=== PATIENT | male | born 1950 | race African-American/Black ===

== ENCOUNTER 2018-09-04 17:18 | Inpatient (IN) | payer MEDICAID, MEDICARE ==
[~2018-09-04] VITALS: Ht 154.9 cm; Wt 69.9 kg
[2018-09-04 17:20] VITALS: BP_SYST 78
--- NOTE | 2018-09-04 17:20 | NUR ---
Arrived via ALS ambulance with reported SOB x 1 hour. Patient was desaturating on RA with tachypnea, shallow resp, hypotension enroute. Placed in room 8. Placed on cardiac catheterization technician, blood pressure machine and pulse oximeter. To gown for exam. Side rails up. Report given to Sommer VILLEGAS.
--- NOTE | 2018-09-04 17:22 | NUR ---
Patient brought in ALS [facility] from [facility]. Patient presents with Shortness of breath x 1 hour prior to arrival. Patient appears to be lethargic o2 saturation unable to read at this time. Skin is cold and dry. Patient is Tachycardic and Tachypneic on NRB at 15 Liters. History of bladder cancer. AAO x 3. Patient has Mcintosh catheter in place. Denies any pain at this time. No other complaints/injuries per patient or as noted. Daughter, Eilzabet, at [facility] states patient is DNR/ DNI. Will continue to monitor.
--- NOTE | 2018-09-04 17:28 | NUR ---
ER at bedside examining patient.
[2018-09-04] MEDS ORDERED: IPRATROPIUM BROM 0.5 MG/2.5 ML VIAL.NEB (ATROVENT) INH ONE (17:30)
[2018-09-04] MEDS ORDERED: ALBUTEROL SULFATE 0.083% 2.5 MG/3 ML VIAL.NEB INH ONE (17:30)
--- NOTE | 2018-09-04 17:30 | NUR ---
Patient placed on Bipap. Марина ORTA at bedside.
--- NOTE | 2018-09-04 17:43 | NUR ---
# 18 gauge angiocath placed to Left upper arm. Use of asceptic technique. Opsite placed over site. Blood return noted. Blood for lab drawn from site. Flushed with 10 cc of normal saline. No evidence of infiltration noted. Patient tolerated well.
--- NOTE | 2018-09-04 17:44 | NUR ---
Blood cultures drawn
[2018-09-04] MEDS ORDERED: NACL 0.9% 1,000 ML IV ONE ×2 (17:45→18:15)
--- NOTE | 2018-09-04 17:47 | NUR ---
Rayshawn electrocardiographic technician, at bedside for Chest Xray.
[2018-09-04 17:48] LABS: BASOPHILS # (AUTO) 0.1 K/uL (0.0-0.2); BASOPHILS % (AUTO) 0.7 % (0.0-2.0); HEMATOCRIT 22.1 % (36-54); HEMOGLOBIN 7.1 g/dL (14.0-18.0); LYMPHOCYTES # (AUTO) 1.5 K/uL (1.0-5.5); MEAN CORPUSCULAR HEMOGLOBIN 27 pg (27-31); MEAN CORPUSCULAR HGB CONC 32 % (32-36); MEAN CORPUSCULAR VOLUME 85 fL (79.0-98.0); MONOCYTES # (AUTO) 1.5 K/uL (0.0-1.0); MONOCYTES % (AUTO) 7.8 % (1.7-9.3); NEUTROPHILS % (AUTO) 83.5 % (40.0-70.0); PLATELET COUNT (AUTO) 358 K/uL (130-430); RED CELL DISTRIBUTION WIDTH 18.6 % (9.0-15.0); WHITE BLOOD COUNT (AUTO) 19.2 K/uL (4.8-10.8)
--- NOTE | 2018-09-04 17:49 | NUR ---
Patient's O2 saturation now 100% on Bipap. Blood pressure continues to be at 72/55, HR 108. IV infusing Normal Saline 0.9% Bolus. Daughter Elizabet at bedside.
[2018-09-04 18:04] LABS: CALCIUM 12.3 mg/dL (8.4-11.0); CREATININE 4.96 mg/dL (0.55-1.30)
[2018-09-04 18:10] LABS: POTASSIUM 7.1 mmol/L (3.5-5.1)
[2018-09-04 18:12] LABS: ALBUMIN 2.4 g/dL (3.4-4.8); TOTAL BILIRUBIN 0.4 mg/dL (0.0-1.0)
[2018-09-04] MEDS ORDERED: CALCIUM CHLORIDE 1 GM/10 ML DISP.SYRIN (14 mEq Ca++/SYR) IVP ONE (18:15)
[2018-09-04] MEDS ORDERED: DEXTROSE 50% JECT 50 ML DISP.SYRIN IVP ONE (18:15)
[2018-09-04] MEDS ORDERED: PIPERACILLIN/TAZOBACTAM 2.25 GM in NS 50 ML IV ONE (18:15)
[2018-09-04] MEDS ORDERED: SODIUM BICARBONATE 8.4% JECT 50 MEQ/50 ML SYRINGE IVP ONE (18:15)
[2018-09-04] MEDS ORDERED: SODIUM POLYSTYRENE SULFONATE 15 GM/60 ML UDBTL PO ONE (18:15)
[2018-09-04] MEDS ORDERED: INSULIN REGULAR, HUMAN 10 UNITS/0.1 ML INJ IVP ONE (18:15)
[2018-09-04] MEDS ORDERED: VANCOMYCIN HCL 1,000 MG in NS 250 ML IV ONE (18:15)
--- NOTE | 2018-09-04 18:19 | NUR ---
Alejandra iqbal in ED - 09/04/18 at 1912 by SDEDCJM Patient's Iv line to Right FA infiltrated and left Upper arm infilitrated. IVs removed and pressure applied.
--- NOTE | 2018-09-04 18:20 | NUR ---
End of life care decisions discussed with Daughter, Elizabet, at beside by Dr. Fischer. Opportunity for questions and concerns addressed. Patient's code status is DNR/ DNI paperwork completed and placed in chart.
--- NOTE | 2018-09-04 18:24 | NUR ---
Dr. Fischer documented Septic Shock. Blood Cultures obtained. Lactic ordered. Antibiotics: Zosyn and Vancomycin ordered by Dr. Fischer. Patient started on Fluid Resuscitation.
[2018-09-04] MEDS ORDERED: PIPERACILLIN/TAZOBACTAM 2.25 GM VIAL IV ONE ×2 (18:40→22:08)
[2018-09-04] MEDS ORDERED: VANCOMYCIN HCL 1000 MG/VIAL IV ONE (18:42)
--- NOTE | 2018-09-04 18:42 | NUR ---
Patient's Iv line to Right FA infiltrated and left Upper arm infilitrated. IVs removed and pressure applied.
[2018-09-04] MEDS ORDERED: NOREPINEPHRINE BITARTRATE 4 MG in NS 246 ML IV ONE (18:45)
--- NOTE | 2018-09-04 18:45 | NUR ---
Dr. Fischer at bedside for Central Line placement.
[2018-09-04] MEDS ORDERED: LORazepam 2 MG/ML VIAL (FOR ER USE) ONE ×2 (19:00→19:40)
--- NOTE | 2018-09-04 19:05 | NUR ---
Alejandra iqbal in ED - 09/04/18 at [address] Fischer at bedside for central line placement.
--- NOTE | 2018-09-04 19:18 | NUR ---
Dr. Coulter at bedside.
[2018-09-04] MEDS ORDERED: DILR3 PO (19:35)
[2018-09-04] MEDS ORDERED: MULT-1117 PO (19:35)
[2018-09-04] MEDS ORDERED: ACET325T53 PO (19:35)
[2018-09-04] MEDS ORDERED: SENN8.6T19 PO (19:35)
[2018-09-04] MEDS ORDERED: PRO40 PO (19:35)
[2018-09-04] MEDS ORDERED: BISA-79 PO (19:35)
[2018-09-04] MEDS ORDERED: ONDA4TAB5 PO (19:35)
[2018-09-04] MEDS ORDERED: HYDR-4272 PO (19:35)
[2018-09-04] MEDS ORDERED: MOM PO (19:35)
[2018-09-04] MEDS ORDERED: FLEETMO RC (19:35)
[2018-09-04] MEDS ORDERED: DOCU-144 PO (19:35)
[2018-09-04] MEDS ORDERED: NOREPINEPHRINE 4 MG/4 ML VIAL IV ONE (19:54)
[2018-09-04] MEDS ORDERED: LORazepam 2 MG/ML VIAL IVP ONE (20:00)
[2018-09-04] MEDS ORDERED: LORazepam 2 MG/ML VIAL (FOR ER USE) IM ONE (20:00)
--- NOTE | 2018-09-04 20:02 | NUR ---
Medication reconciliation completed with information provided by Patient's MEdication list from Aaron Cook. Any prior medication reconciliation on file was reviewed and corrected.
--- NOTE | 2018-09-04 20:02 | NUR ---
Levophed drip started at 19:57. BP is 72/44. HR 114. Addendum: 09/04/18 at 2008 by SDEDVS Rate is 2 mcg/min
--- NOTE | 2018-09-04 20:08 | NUR ---
Pt's bp is 80/48; HR: 114. Levophed was titrated up to 4mcg/min. Time 2007
--- NOTE | 2018-09-04 20:09 | NUR ---
Patient will be admitted to care of Dr. Coulter. Admitted to ICU unit. Will go to room ICU 3. Belongings list completed. Summary report printed. Report will be given at bedside.
[2018-09-04] MEDS ORDERED: ACETAMINOPHEN 650 MG SUPP.RECT RC PRN (20:15)
[2018-09-04] MEDS ORDERED: ONDANSETRON HCL 4 MG/2 ML VIAL IVP PRN (20:15)
--- NOTE | 2018-09-04 20:19 | NUR ---
Pt's bp is 91/49. Hr. 111 at 2019.
[2018-09-04 20:32] VITALS: BP_SYST 93
--- NOTE | 2018-09-04 20:32 | NUR ---
Transfer to ICU via ACLS protocol. Licensed nurse present. IV present no signs or symptoms of infiltration.
--- NOTE | 2018-09-04 20:32 | NUR ---
ICU ADMIT Pt is obtunded. O2 via BIPAP, tolerating current settings. SR/ST noted on monitor. Right IJ, triple lumen noted with IVF and Levophed infusing. Belongings brought with patient. Skin cool and dry. Sepsis protocol in place. Safety precautions in place. Will continue to monitor.
[2018-09-04 20:43] VITALS: BP_SYST 93
[2018-09-04 21:00] VITALS: BP_SYST 101; BP_SYST 67
[2018-09-04 21:09] LABS: BASOPHILS % (AUTO) 0.2 % (0.0-2.0); LYMPHOCYTES % (AUTO) 6.8 % (20.5-51.5); MEAN CORPUSCULAR HEMOGLOBIN 28 pg (27-31); MEAN CORPUSCULAR HGB CONC 33 % (32-36); MEAN CORPUSCULAR VOLUME 85 fL (79.0-98.0); MONOCYTES # (AUTO) 1.6 K/uL (0.0-1.0); MONOCYTES % (AUTO) 10.8 % (1.7-9.3); NEUTROPHILS # (AUTO) 12.4 K/uL (1.8-7.7); NEUTROPHILS % (AUTO) 82.2 % (40.0-70.0); PLATELET COUNT (AUTO) 244 K/uL (130-430); RED BLOOD CELL COUNT(AUTO) 2.13 MIL/uL (4.2-6.2); RED CELL DISTRIBUTION WIDTH 18.2 % (9.0-15.0); WHITE BLOOD COUNT (AUTO) 15.1 K/uL (4.8-10.8)
[2018-09-04 21:20] LABS: HEMATOCRIT 18.1 % (36-54)
[2018-09-04 21:24] LABS: CALCIUM 11.3 mg/dL (8.4-11.0); CREATININE 4.68 mg/dL (0.55-1.30); POTASSIUM 5.6 mmol/L (3.5-5.1)
[2018-09-04] MEDS: FAMOTIDINE PF 20 MG/2 ML VIAL IVP SCH (21:28)
[2018-09-04] MEDS: NACL 0.9% 1,000 ML IV SCH (21:28)
--- NOTE | 2018-09-04 21:30 | NUR ---
Pts daughter, Marine at bedside.
--- NOTE | 2018-09-04 21:55 | NUR ---
RENAL CONSULT CALLED, FOR RENAL CONSULT CALLED AND SPOKE WITH TRIXIE.MESSAGE LEFT. PULMONARY CONSULT FOR CALLED AND SPOKE WITH TRIXIE @ EXCHANGE. HEMATOLOGY CONSULT FOR CALLED AND SPOKE WITH TRIXIE @ EXCHANGE.
[2018-09-04 22:00] VITALS: BP_SYST 105
--- NOTE | 2018-09-04 22:44 | NUR ---
BLOOD CONSENT Blood consent given over the phone from pts daughter Marine Gentile, second nurse here for consent.
[2018-09-04 23:00] VITALS: BP_SYST 102
--- NOTE | 2018-09-04 23:56 | NUR ---
BLOOD TRANSFUSION STARTED. 1 OUT OF 2 UNITS TO BE GIVEN.
[2018-09-05] VITALS (24 sets, daily range): BP systolic 93–125
[2018-09-05] MEDS: PIPERACILLIN/TAZO 2.25G/DEX-IS 50 ML IV SCH ×5 (00:12→23:26)
[2018-09-05] MEDS ORDERED: NOREPINEPHRINE 4 MG/4 ML VIAL IV ONE (03:27)
[2018-09-05] MEDS: NACL 0.9% 1,000 ML IV SCH ×4 (04:11→22:27)
[2018-09-05] MEDS: NOREPINEPHRINE BITARTRATE 4 MG in NS 246 ML IV PRN ×3 (04:11→21:32)
[2018-09-05 06:05] LABS: BASOPHILS # (AUTO) 0.1 K/uL (0.0-0.2); BASOPHILS % (AUTO) 0.7 % (0.0-2.0); HEMATOCRIT 29.4 % (36-54); HEMOGLOBIN 9.5 g/dL (14.0-18.0); MEAN CORPUSCULAR HEMOGLOBIN 29 pg (27-31); MEAN CORPUSCULAR HGB CONC 32 % (32-36); MONOCYTES # (AUTO) 1.2 K/uL (0.0-1.0); MONOCYTES % (AUTO) 8.8 % (1.7-9.3); NEUTROPHILS # (AUTO) 11.6 K/uL (1.8-7.7); NEUTROPHILS % (AUTO) 83.5 % (40.0-70.0); PLATELET COUNT (AUTO) 251 K/uL (130-430); RED BLOOD CELL COUNT(AUTO) 3.34 MIL/uL (4.2-6.2); RED CELL DISTRIBUTION WIDTH 17.5 % (9.0-15.0); WHITE BLOOD COUNT (AUTO) 13.9 K/uL (4.8-10.8)
[2018-09-05 06:16] LABS: INR 1.1 (0.80-1.20); PROTHROMBIN TIME 11.2 SECS (9.5-12.5)
[2018-09-05 06:20] LABS: CALCIUM 10.8 mg/dL (8.4-11.0); CREATININE 4.25 mg/dL (0.55-1.30)
[2018-09-05 06:26] LABS: POTASSIUM 5.8 mmol/L (3.5-5.1)
[2018-09-05 07:09] LABS: MEAN CORPUSCULAR VOLUME 88 fL (79.0-98.0)
--- NOTE | 2018-09-05 07:10 | NUR ---
OPENING NOTE: Received SBAR report and plan of care from restaurant shift leader RN
--- NOTE | 2018-09-05 07:23 | NUR ---
ENDORSEMENT Pt care endorsed to dayshift RN at bedside using nursing SBAR.
--- NOTE | 2018-09-05 08:05 | NUR ---
RT NOTES Settings to 14/5 80% per Dr Lema's order. No adverse reactions noted. Will monitor pt.
--- NOTE | 2018-09-05 08:05 | NUR ---
ABG results received, notified Dr Lema of abnormal values by telephone, orders received, entered and carried out.
[2018-09-05] MEDS ORDERED: SODIUM BICARBONATE 8.4% JECT 50 MEQ/50 ML SYRINGE IVP ONE (08:15)
[2018-09-05] MEDS: FAMOTIDINE PF 20 MG/2 ML VIAL IVP SCH ×2 (08:48→20:33)
[2018-09-05] MEDS ORDERED: SODIUM BICARBONATE 8.4% JECT 50 MEQ/50 ML SYRINGE ONE (08:59)
--- NOTE | 2018-09-05 09:10 | NUR ---
RT NOTES FIO2 TO 60% per titration order. No adverse reactions noted. Will monitor pt. Addendum: 09/05/18 at 0915 by Selma Dos Santos RT Amended: Links added.
--- NOTE | 2018-09-05 09:25 | NUR ---
RT NOTES Called to bedside due to low saturation, FIO2 to 70%, readjusted pulse ox, pt's current sat 95%
--- NOTE | 2018-09-05 09:40 | NUR ---
DR LAWRENCE at bedside discussing with patient's daughter, who has POA, about possible placement of NGTube, and replacement of LT Nephrostomy tube which seems to be dislodged. Daughter said she needed to discuss with family before authorizing procedures. Daughter educated on importance of having NGtube placed for administration of medications and possible enteral feeding, and the importance of replacing the nephrostomy tube for renal drainage. She said she would let us know as soon as she can make a decision.
--- NOTE | 2018-09-05 10:06 | NUR ---
Nutrition Update Bernard Scale 13 noted. Pt admitted for acute respiratory failure. Diet: NPO BMI: 20.9 kg/m2 RD to follow per nutrition care standards.
[2018-09-05] MEDS ORDERED: HYDROCORTISONE SOD SUCC 100 MG/2 ML VIAL IVP ONE (10:45)
[2018-09-05 13:06] LABS: HEMOGLOBIN 5.9 g/dL (14.0-18.0)
--- NOTE | 2018-09-05 14:31 | NUR ---
Patients daughter Elizabet is at bedside, daughter has POA. Asked daughter if she had reached a decision about NGtube placement and LT Nephrostomy replacement as discussed with Dr Rodriguez this morning. Daughter said she did not want either tube placed. Daughter stated that she would like time for family to come visit patient and then she has intentions of requesting that we DC Levophed and BiPap support. She states that she wants to "let her dad go now because he is no longer here and has suffered long enough"
--- NOTE | 2018-09-05 15:01 | NUR ---
Draw Press Operator Note Patient referred to Draw Press Operator by nursing for end of life issues. SECURITY PATROL OFFICER met with patient's daughter, Alexei, at bedside. Patient is unresponsive. Alexei stated patient has been in pain for ten years. He has had multiple hospitalizations and recently has been living at [facility]. She stated patient never wanted to be kept alive by machines. She has told her family members that she plans to remove life supporting measures soon, possibly tonight, and that they needed to visit now if they wished to see him. Alexei is at peace with this decision, knowing it is what patient would want. SECURITY PATROL OFFICER noted that Alexei is the decision maker in the POLST dated 08/20/18 which is in the chart. Alexei is working on mortuary arrangements and will let patient's nurse know when she has made a decision. SECURITY PATROL OFFICER offered support and business card. Will remain available upon request. Addendum: 09/06/18 at 1401 by Sam LANDA SS met with Alexei at patients bedside. Pt looks uncomfortable but Alexei stated "he looks better than yesterday". Alexei is still continuing to contact mortuary services for pricing. SS offered to call clergy/roll mechanic services since the patient is a Yazidi and affiliated with a Yazidi faith in [place]. Per Alexei, she has contacted the patients roll mechanic/clergy yesterday and was supposed to visit today; SS provided resources from around the area if she decides to call somebody else; Alexei was grateful and is considering the option. SS provided additional mortuary services, bereavement support group and faith list. SS will remain available for support.
--- NOTE | 2018-09-05 15:02 | NUR ---
Dietitian Recommendations * Consider advance diet or EN support versus PPN support if/when medically appropriate LP, RD Please refer to Nutrition Assessment for details. Addendum: 09/05/18 at [address] Amended: Links added.
--- NOTE | 2018-09-05 15:20 | NUR ---
RT NOTES FIO2 to 60% titration order Addendum: 09/05/18 at 1734 by Selma Dos Santos RT Amended: Links added.
--- NOTE | 2018-09-05 17:25 | NUR ---
RT NOTES FIO2 to 55% per titration order. Addendum: 09/05/18 at 1736 by Selma Dos Santos RT Amended: Links added.
[2018-09-05] MEDS: HYDROCORTISONE SOD SUCC 100 MG/2 ML VIAL IVP SCH (18:12)
[2018-09-05] MEDS: INSULIN REGULAR, HUMAN 100 UNITS/ML, 10 ML VIAL (humuLIN R) SUBCUT PRN ×2 (18:20→23:31)
[2018-09-05] MEDS: LEVOFLOXACIN 250 MG/D5W 50 ML IV SCH (18:54)
--- NOTE | 2018-09-05 19:20 | NUR ---
PM ASSESSMENT Pt in bed w/ eyes closed resting comfortably. No signs of acute distress or discomfort noted. Pt is obtunded. VSS w/ SR seen on the monitor. Pt on Bipap 14/5, BUR 20, and FIO2 55%, tolerating well w/ O2 sats @ 98% and even and unlabored breathing. Pt has a R IJ triple lumen, dressing c/d/i which is infusing NS @ 150 cc/hr and Levophed @ 8 mcg/min. Pt has bilateral nephrostomy tube to right and left side. Bilateral SCD's noted to pt's lower extremities. Bed is locked and in lowest position, call light w/in reach, will cont to monitor.
--- NOTE | 2018-09-05 19:55 | NUR ---
RT titrated pt's FIO2 to 40%, pt tolerated changes well, will cont to monitor.
--- NOTE | 2018-09-05 20:10 | NUR ---
MD Rounds Dr. Coulter in to see pt. New orders received, will carry out orders.
[2018-09-05] MEDS ORDERED: SODIUM POLYSTYRENE SULFONATE 15 GM/60 ML UDBTL RC ONE (20:15)
[2018-09-05] MEDS ORDERED: SODIUM POLYSTYRENE SULFONATE 15 GM/60 ML UDBTL RC SCH (20:30)
--- NOTE | 2018-09-05 22:40 | NUR ---
Pt in bed w/ eyes closed resting comfortably. No signs of acute distress or discomfort noted. Will cont to monitor pt.
[2018-09-06] VITALS (24 sets, daily range): BP systolic 103–137
--- NOTE | 2018-09-06 01:45 | NUR ---
CHG Pt had a bowel movement at this time. CHG bath given. Pt tolerated well, will cont to monitor pt.
[2018-09-06] MEDS: HYDROCORTISONE SOD SUCC 100 MG/2 ML VIAL IVP SCH ×3 (02:48→18:15)
--- NOTE | 2018-09-06 03:40 | NUR ---
RT titrated pt's FIO2 to 30%, pt tolerated changes well, will cont to monitor.
--- NOTE | 2018-09-06 05:10 | NUR ---
RT put pt on 2L O@ via NC, pt tolerated changes well, will cont to monitor.
[2018-09-06] MEDS: NACL 0.9% 1,000 ML IV SCH (05:18)
[2018-09-06] MEDS: PIPERACILLIN/TAZO 2.25G/DEX-IS 50 ML IV SCH ×3 (05:18→17:33)
[2018-09-06 05:24] LABS: BASOPHILS % (AUTO) 0.3 % (0.0-2.0); HEMATOCRIT 23.9 % (36-54); HEMOGLOBIN 7.9 g/dL (14.0-18.0); LYMPHOCYTES # (AUTO) 0.4 K/uL (1.0-5.5); LYMPHOCYTES % (AUTO) 2.8 % (20.5-51.5); MEAN CORPUSCULAR HEMOGLOBIN 29 pg (27-31); MEAN CORPUSCULAR HGB CONC 33 % (32-36); MEAN CORPUSCULAR VOLUME 87 fL (79.0-98.0); MONOCYTES # (AUTO) 1.1 K/uL (0.0-1.0); MONOCYTES % (AUTO) 7.7 % (1.7-9.3); NEUTROPHILS # (AUTO) 12.2 K/uL (1.8-7.7); NEUTROPHILS % (AUTO) 89.2 % (40.0-70.0); PLATELET COUNT (AUTO) 192 K/uL (130-430); RED BLOOD CELL COUNT(AUTO) 2.73 MIL/uL (4.2-6.2); RED CELL DISTRIBUTION WIDTH 17.6 % (9.0-15.0); WHITE BLOOD COUNT (AUTO) 13.7 K/uL (4.8-10.8)
[2018-09-06] MEDS: NOREPINEPHRINE BITARTRATE 4 MG in NS 246 ML IV PRN (05:28)
[2018-09-06 05:46] LABS: ALBUMIN 1.9 g/dL (3.4-4.8); CALCIUM 10.5 mg/dL (8.4-11.0); CREATININE 3.1 mg/dL (0.55-1.30); POTASSIUM 4.4 mmol/L (3.5-5.1); TOTAL BILIRUBIN 0.4 mg/dL (0.0-1.0); VANCOMYCIN,RANDOM 6.5 ug/mL
--- NOTE | 2018-09-06 07:20 | NUR ---
ENDORSEMENT Report given to BAKARI Montiel using SBAR format and pt care was endorsed. Pt in bed w/ eyes closed resting comfortably. No signs of acute distress or discomfort noted.
--- NOTE | 2018-09-06 07:30 | NUR ---
AM ASSESSMENT Pt is obtunded. O2 via NC @ 2L tolerating current settings. SR noted on monitor. Right IJ, triple lumen noted with IVF and Levophed infusing. Belongings brought with patient. Skin cool and dry. Safety precautions in place. Will continue to monitor.
[2018-09-06] MEDS ORDERED: VANCOMYCIN HCL 1.25 GM/NS 250 ML IV ONE (08:00)
[2018-09-06] MEDS: FAMOTIDINE PF 20 MG/2 ML VIAL IVP SCH ×2 (09:45→21:16)
--- NOTE | 2018-09-06 10:05 | NUR ---
ENDORSEMENT Pt care endorsed to rc VILLEGAS.
[2018-09-06] MEDS ORDERED: *CUBICIN 6 MG/KG Q48H/PHARMACY XX PRN (11:00)
--- NOTE | 2018-09-06 11:02 | NUR ---
Opening Note received bedside SBAR report from endorsing RN, patient resting in bed, no acute distress noted, respirations even and unlabored on 2L nasal cannula, no pain noted using FLACC scale, educated patient on use of call light and asked to call for assistance, call light in reach, bed in low and locked position, bed alarm on.
--- NOTE | 2018-09-06 11:30 | NUR ---
WOUND EVALUATION: Wound Consult received from Dr. Coulter. Thank you, Dr. Coulter, for the consult. Patient received in a [place] Bed with a mattress, awake, alert, and oriented. Patient is unable to turn independently. Bernard Score is an 11. Past Medical History: Metastatic cancer with metastasis to the bone, liver and lungs, bilateral Nephrostomy Tubes for Obstructive Uropathy, Diabetes Mellitus, Hypertension, pathologic fracture of the spine (with related chronic pain), Chronic Kidney Disease. Recent Labs: WBC 13.7, RBC 2.73, hemoglobin 7.9, hematocrit 23.9, sodium 146, chloride 116, BUN 140, creatinine 3.10, GFR 26, glucose 159, AST 194, ALT 114, alkaline phosphatase 203, serum total protein 6.0, albumin 1.9, PTT 22.1. Microbiology: Blood culture results 2 in progress. MRSA screen results in progress. Intrinsic factors that delay wound healing: Diabetes mellitus, chronic kidney disease, hypoalbuminemia. Extrinsic factors that delay wound healing: Decreased mobility. Wound Assessment: 1. Sacral area Stage II pressure ulcer, present on admission. Wound bed has 100% red tissue. No odor, no drainage. Periwound has dark discolored wrinkly skin. Measures 2.8 cm x 1.0 cm x 0.1 cm. Recommend: Cleanse wound with normal saline. Apply moisture barrier cream to aneta-wound. Apply Therahoney gel to wound bed. Cover with foam dressing. Perform wound care daily, and as needed for dressing soiling or dislodgement. Also recommend: Reposition patient every 2 hours with pillow support and off-load pressure areas with pillows for pressure re-distribution. Offload, elevate and float bilateral heels with pillows. Perform skin care and monitor skin integrity Q shift. Use moisture barrier cream on buttocks and other moisture susceptible areas QID and as needed for soiling. Place patient on a low air-loss mattress.
--- NOTE | 2018-09-06 11:35 | NUR ---
Wound Care patient incontinent of bladder, patient cleaned and linen changed, educated patient on purpose and procedure for wound care, wound care completed, patient tolerated well, no pain noted during or after wound care, no acute distress noted.
[2018-09-06] MEDS: 0.45% NACL 1,000 ML IV SCH ×2 (11:58→17:38)
[2018-09-06] MEDS ORDERED: DAPTOmycin 420 MG in NS 50 ML IV SCH (12:00)
--- NOTE | 2018-09-06 12:29 | NUR ---
Oral care oral care provided, mouth moisturizer applied, patient tolerated well, patients daughter Flakita at bedside.
[2018-09-06] MEDS: MORPHINE 4 MG/ML INJ. SYRINGE IVP PRN (13:40)
--- NOTE | 2018-09-06 15:29 | NUR ---
Closing Note bedside SBAR report given to receiving RN, patient resting in bed, respirations even and unlabored on 2L nasal cannula, no acute distress noted, educated patient on use of call light and asked to call for assistance, call light in reach, bed in low and locked position, bed alarm on, care endorsed to receiving RN.
--- NOTE | 2018-09-06 15:33 | NUR ---
Opening Note Received bedside report from Katalina RN for continuation of care. Received patient resting in bed, no signs or symptoms of acute distress noted. Bed locked in lowest position, bed alarm on, and call light within reach.
[2018-09-06] MEDS: LEVOFLOXACIN 250 MG/D5W 50 ML IV SCH (17:33)
--- NOTE | 2018-09-06 18:30 | NUR ---
Patient's close friends at bedside. Opportunity for questions, questions answered clearly and education provided.
--- NOTE | 2018-09-06 18:56 | NUR ---
Dr. Coulter at bedside examining patient. No new orders.
--- NOTE | 2018-09-06 19:03 | NUR ---
Endorsement Endorsed bedside report to oncoming RN using SBAR approach for continuation of care.
--- NOTE | 2018-09-06 19:45 | NUR ---
BP 135/76, LEVOPHED TURNED OFF AT THIS TIME.
--- NOTE | 2018-09-06 20:00 | NUR ---
SOMNOLENT. RESPONSIVE TO VERBAL STIMULI. ON O2 AT 2L/MIN/NC. BREATH SOUNDS WITH CRACKLES. POX 98%. OCCASIONAL NON-PRODUCTIVE COUGH NOTED. BOWEL SOUNDS (+). PULSES PALPABLE. SKIN W/D. COLOR SATISFACTORY. BILATERAL NEPHROSTOMY TUBE NOTED, LEFT BAG WITHOUT URINE OUTPUT. RIGHT BAG WITH MOD AMOUNT OF CLEAR YELLOW URINE TO GRAVITY. DARRICK SCD'S IN PLACE. RIGHT IJ TLC DRSG D/I. SINUS TACH. HOB UP TO COMFORT. SIDE RAILS UP X2. CALL LIGHTS WITHIN REACH.
--- NOTE | 2018-09-06 21:00 | NUR ---
FAMILY IN TO VISIT. UPDATED ON STATUS. SOME EDUCATION GIVEN. QUESTIONS ANSWERED.
--- NOTE | 2018-09-06 22:20 | NUR ---
FAMILY LEFT FOR HOME. HS CARE DONE. TURNED. ORAL CARE GIVEN. MARIA ISABEL PROC WELL.
[2018-09-07] VITALS (16 sets, daily range): BP systolic 99–140
--- NOTE | 2018-09-07 | NUR ---
OPENS EYES SPONTANEOUSLY. ACCU-CHEK 125, NO INSULIN DUE PER SLIDING SCALE COV.
[2018-09-07] MEDS: 0.45% NACL 1,000 ML IV SCH ×2 (00:09→10:17)
[2018-09-07] MEDS: PIPERACILLIN/TAZO 2.25G/DEX-IS 50 ML IV SCH ×4 (00:10→17:22)
[2018-09-07] MEDS: INSULIN REGULAR, HUMAN 100 UNITS/ML, 10 ML VIAL (humuLIN R) SUBCUT PRN ×2 (00:14→06:10)
--- NOTE | 2018-09-07 02:00 | NUR ---
OCCASIONALLY TAKES OFF NASAL CANNULA, BUT STILL SATURATES WELL AT 96-99%.
[2018-09-07] MEDS: HYDROCORTISONE SOD SUCC 100 MG/2 ML VIAL IVP SCH ×3 (03:07→18:28)
--- NOTE | 2018-09-07 04:00 | NUR ---
INCONTINENT OF URINE AND STOOL. DEFECATED 1 MODERATE DARK GREENISH PASTY STOOL. MORPHINE 4 MG IVP GIVEN FOR GENERALIZED PAIN. CLEANED. CHG BATH GIVEN. ORAL CARE, VANESSA-CARE, BACK CARE, & SKIN CARE RENDERED. COMPLETE LINEN CHANGE DONE. DOES NOT ASSIST WITH TURNING. MARIA ISABEL PROC WELL.
[2018-09-07] MEDS: MORPHINE 4 MG/ML INJ. SYRINGE IVP PRN ×3 (04:06→19:58)
[2018-09-07 05:39] LABS: BASOPHILS % (AUTO) 0.2 % (0.0-2.0); EOSINOPHILS % (AUTO) 0.1 % (0.0-4.0); HEMOGLOBIN 7.5 g/dL (14.0-18.0); LYMPHOCYTES # (AUTO) 0.5 K/uL (1.0-5.5); LYMPHOCYTES % (AUTO) 4.1 % (20.5-51.5); MEAN CORPUSCULAR HEMOGLOBIN 29 pg (27-31); MEAN CORPUSCULAR HGB CONC 32 % (32-36); MEAN CORPUSCULAR VOLUME 89 fL (79.0-98.0); MONOCYTES # (AUTO) 0.8 K/uL (0.0-1.0); MONOCYTES % (AUTO) 6.6 % (1.7-9.3); NEUTROPHILS # (AUTO) 10.5 K/uL (1.8-7.7); PLATELET COUNT (AUTO) 149 K/uL (130-430); WHITE BLOOD COUNT (AUTO) 11.8 K/uL (4.8-10.8)
--- NOTE | 2018-09-07 06:00 | NUR ---
LEFT NEPHROSTOMY TUBE 0 OUT. RIGHT NEPHROSTOMY TUBE 100CC OUT. ACCU CHEK 121, NO INSULIN DUE PER SLIDING SCALE COV. REMAINS IN GUARDED CONDITION.
[2018-09-07 06:05] LABS: ALBUMIN 1.7 g/dL (3.4-4.8); CALCIUM 11.1 mg/dL (8.4-11.0); CREATININE 2.62 mg/dL (0.55-1.30); POTASSIUM 3.6 mmol/L (3.5-5.1); TOTAL BILIRUBIN 0.4 mg/dL (0.0-1.0)
--- NOTE | 2018-09-07 07:40 | NUR ---
Received report and patient. Patient in bed in no acute distress, sleeping. Side rails x 3 up. Call light with in reach.
[2018-09-07] MEDS: FAMOTIDINE PF 20 MG/2 ML VIAL IVP SCH ×2 (09:56→20:58)
[2018-09-07] MEDS: D5W 1,000 ML IV SCH (11:38)
--- NOTE | 2018-09-07 15:01 | NUR ---
Endorsed and gave report to Liane. Transferred patient to room 132B. Patient in no acute distress. On 022L via NC. Side rails x 3. Call light with in reach.
--- NOTE | 2018-09-07 15:10 | NUR ---
received report from [facility] going to room 132-C. patient alert awake x 1. vital signs stable. temp 97, Hr 101 sinus tachycardia. respiration 21. bp 127/77. lungs bilaterally with crackles and diminished at the bases. has non productive cough noted. abdomen soft and non distended. has bilateral nephrostomy tube. no output nor drainage noted. incontinent of bowel and urine noted. Oxygen Saturation 92%. has central line rt internal jugular 2 lumen noted. bed in low position, alarmed and locked.
[2018-09-07] MEDS: LEVOFLOXACIN 250 MG/D5W 50 ML IV SCH (17:19)
--- NOTE | 2018-09-07 17:50 | NUR ---
repositioned to sides to the left side. had bowel movement x 1 moderate amount soft brown stool. aneta care done. applied z guard on both feet. too much dryness noted. middle buttocks area had skin tear noted. placed a honey and has optifoam dressing on it.
--- NOTE | 2018-09-07 18:00 | NUR ---
antonino vaughan hanged at this time.
--- NOTE | 2018-09-07 18:05 | NUR ---
iv levaquin given and hanged at this time.
--- NOTE | 2018-09-07 18:30 | NUR ---
dr Coulter called for restraint order initially. awaiting to call back.
--- NOTE | 2018-09-07 18:35 | NUR ---
placed both wrist restraints pulling out tubes and central lines and oxygen.
--- NOTE | 2018-09-07 18:40 | NUR ---
both right and left nephrostomy tube zero output.
--- NOTE | 2018-09-07 19:00 | NUR ---
both feet elevated on pillows. on low air mattress noted.
--- NOTE | 2018-09-07 19:09 | NUR ---
please follow up a call from dr Coulter for restraint order.
--- NOTE | 2018-09-07 19:22 | NUR ---
endorsed to incoming nurse Faina VILLEGAS. please take a photo on the buttocks area. thanks.
--- NOTE | 2018-09-07 19:31 | NUR ---
Opening note Received patient resting in bed, supine, w/ eyes closed. No sign of distress noted. He is on 2L NC, has RIJ central line and has IVF infusing at 100 ml/hr. SCD's on, bed is locked to lowest position, bed alarm on, side rails up 3x. Updated board. Three family members visiting at bed side.
--- NOTE | 2018-09-07 20:07 | NUR ---
Pain Med Family visiting at bedside reports patient is in pain and upon assessment paint did report and demonstrate signs of pain. He was given PRN pain medication for severe pain as ordered. Educated patient and family on Morphine and they verbalized understanding. Will monitor.
--- NOTE | 2018-09-07 20:48 | NUR ---
PERSON I SPOKE WITH: MUSTAPHA CONSULTING PHYSICIAN: DR. FALL SPEECH LANGUAGE PATHOLOGY ASSISTANT PHONE NUMBER: [phone]
--- NOTE | 2018-09-07 21:04 | NUR ---
Dr. Coulter Spoke w/ Dr. Coulter and informed patient pulling on central line and he placed order for soft restraints to bilateral wrists. Read back.
--- NOTE | 2018-09-07 22:29 | NUR ---
Rounds Patient resting in/out of sleep. He was arousable and repositioned. Oral care provide and release of restraints. Safe precautions in place.
[2018-09-08] MEDS: D5W 1,000 ML IV SCH ×3 (00:41→18:08)
[2018-09-08] MEDS: PIPERACILLIN/TAZO 2.25G/DEX-IS 50 ML IV SCH ×4 (00:42→17:31)
--- NOTE | 2018-09-08 00:42 | NUR ---
Antibiotic / Fingerstick BGT Due antibiotic administered and infusing well. Fingerstick BGT was done and 2 units of insulin given per sliding scale order. New bag of IVF fluids was hung and infusing as ordered at 100 ml/hr. Oral care provided. Restraints released and patient is moving arms and reaching for the IV line. He is not combative nor restless. Will monitor.
[2018-09-08 00:46] VITALS: BP_SYST 142
[2018-09-08] MEDS: INSULIN REGULAR, HUMAN 100 UNITS/ML, 10 ML VIAL (humuLIN R) SUBCUT PRN ×4 (00:54→17:37)
--- NOTE | 2018-09-08 02:28 | NUR ---
Rounds Patient was repositioned for comfort, initially he didn't want to turn and said he is fine, though he did cooperate. IVF infusing as ordered, no further needs. Will monitor.
[2018-09-08] MEDS: HYDROCORTISONE SOD SUCC 100 MG/2 ML VIAL IVP SCH ×3 (03:52→18:15)
--- NOTE | 2018-09-08 04:12 | NUR ---
Rounds Patient given due medication, Solu-Cortef, and tolerating. Restraints released and patient is moving arms around, he is in/out of sleep. He was repositioned and oral care provided. Will monitor.
[2018-09-08] MEDS: MORPHINE 4 MG/ML INJ. SYRINGE IVP PRN (05:22)
--- NOTE | 2018-09-08 05:30 | NUR ---
Dressing change Sacral dressing was changed and pictures taken. Wound was cleaned with NS and pat dry, then thin layer of honey applied. Covered with self adhesive foam dressing. Patient was given Morphine as ordered for pain management.
[2018-09-08 05:33] LABS: BASOPHILS % (AUTO) 0.1 % (0.0-2.0); HEMATOCRIT 24.8 % (36-54); LYMPHOCYTES # (AUTO) 0.8 K/uL (1.0-5.5); LYMPHOCYTES % (AUTO) 5.6 % (20.5-51.5); MEAN CORPUSCULAR HEMOGLOBIN 29 pg (27-31); MEAN CORPUSCULAR HGB CONC 32 % (32-36); MEAN CORPUSCULAR VOLUME 89 fL (79.0-98.0); MONOCYTES % (AUTO) 6.7 % (1.7-9.3); NEUTROPHILS # (AUTO) 12.7 K/uL (1.8-7.7); NEUTROPHILS % (AUTO) 87.6 % (40.0-70.0); PLATELET COUNT (AUTO) 152 K/uL (130-430); RED BLOOD CELL COUNT(AUTO) 2.78 MIL/uL (4.2-6.2); RED CELL DISTRIBUTION WIDTH 18.6 % (9.0-15.0); WHITE BLOOD COUNT (AUTO) 14.5 K/uL (4.8-10.8)
[2018-09-08 05:58] LABS: ALBUMIN 1.6 g/dL (3.4-4.8); CALCIUM 11.6 mg/dL (8.4-11.0); CREATININE 2.52 mg/dL (0.55-1.30); POTASSIUM 3.3 mmol/L (3.5-5.1); TOTAL BILIRUBIN 0.3 mg/dL (0.0-1.0)
--- NOTE | 2018-09-08 07:30 | NUR ---
Received report from endorsing RN. Pt states no pain at this time, no distress noted. Restraints in place for safety.
--- NOTE | 2018-09-08 07:47 | NUR ---
closing note Patient resting, eyes open, no sign of distress. Needs met throughout shift, endorsed care to BAKARI Valdivia
[2018-09-08 08:00] VITALS: BP_SYST 126
[2018-09-08] MEDS: FAMOTIDINE PF 20 MG/2 ML VIAL IVP SCH ×2 (08:44→21:34)
[2018-09-08] MEDS ORDERED: POTASSIUM CHLORIDE 40 MEQ in D5W 250 ML IV ONE (10:00)
--- NOTE | 2018-09-08 12:00 | NUR ---
Pt in no signs of pain or distress at this time.
[2018-09-08 12:43] VITALS: BP_SYST 144
--- NOTE | 2018-09-08 14:49 | NUR ---
Nutrition F/U RD reviewed pt's current EMR record including diet Hx, physician notes, nursing notes, pertinent labs/meds/procedures, care trends, and care activity. Current Diet Order: NPO x3 days Subjective Info: Pt seen resting in bed, asking for water. RN present in room. Pt remains NPO, and pending possible swallow eval. Bedscale wt: 168 lb; up 14 lb from admission wt. Unsure of reliability. Current % PO N/A Estimated Energy Expenditure (kcals/day) 7539-6162 kcal/day (MSJ x 1.2-1.5 CBW for possible sepsis) Estimated Protein Required (g/day) 74-93 gm/day (1.2-1.5 gm/kg CBW for sepsis, ARF, geriatric status) Estimated Fluid Required (l/day) Per physician (ARF) Problem/Etiology/Signs/Symptoms Inadequate nutritional intakes related to increased metabolic demands as evidenced by estimated nutritional requirements for possible sepsis. *ongoing Expected Outcomes/Goals - Monitor appetite and PO intakes w/ goal of pt meeting at least 50% of estimated nutritional needs, labs trending WNL, normal GI function, and skin integrity/wt maintenance Dietitian Recommendations * Consider advance diet or EN support versus PPN support if/when medically appropriate * Consider ONS and modulars: Ensure Enlive, Prosource, and Dimitrios if PO diet is indicated Follow Up High Risk: F/U in 2-3 days
--- NOTE | 2018-09-08 14:55 | NUR ---
Dietitian Recommendations * Consider advance diet or EN support versus PPN support if/when medically appropriate * Consider ONS and modulars: Ensure Enlive, Prosource, and Dimitrios if PO diet is indicated LP, RD Please refer to Nutrition F/U for details.
--- NOTE | 2018-09-08 15:56 | NUR ---
S.T. SWALLOW EVAL SWALLOW EVAL COMPLETED. PT PRESENTS W/ MOD PHARYNGEAL DYSPHAGIA W/ COUGHING ON THIN LIQUIDS INDICATING RISK FOR ASPIRATION. RISK FOR MALNUTRITION AND DEHYDRATION D/T POOR INTEREST FOR P.O. REC: PUREE DIET. NECTAR THICK LIQUIDS MONITOR FOR ADEQUATE INTAKE. NURSE JAVIER NOTIFIED. [id number] CK G8997 CK G8998 CK NOMS LEVEL 4
--- NOTE | 2018-09-08 16:00 | NUR ---
Pt's family at bedside. Pt in state no pain. No distress noted.
[2018-09-08 16:32] VITALS: BP_SYST 140
--- NOTE | 2018-09-08 19:20 | NUR ---
Endorsed plan of care to night filler RN.
--- NOTE | 2018-09-08 19:30 | NUR ---
initial notes: pt is resting in bed. wakes up and able to tell his name. verbalized not in pain. on o2 2l via nc. no distress. vital sing are with in normal limits. pt has ivf infusing to right IJ- intact and patent, dressing to that iv site is dry and intact. pt has bilateral wrist restrain. pt has bilateral nephrostomy tube- right is draining clear yellow urine and left side is not draining. dressing to that bilateral nephrostomy is dry and intact. pt has foam dressing to coccyx area- dressing is dry and intact. bilateral scd seen. on BROOKS mattress. needs attended. call light in reach. reposition. low bed position. bed alarm on. side rails up x 3. will continue to monitor.
[2018-09-08 20:06] VITALS: BP_SYST 151
--- NOTE | 2018-09-08 22:00 | NUR ---
notes: pt is sleeping. no sob and pain. reposition. wrist restrain release and check. needs attended. call light in reach. bed alarm on. low bed position. will monitor.
[2018-09-09] MEDS: PIPERACILLIN/TAZO 2.25G/DEX-IS 50 ML IV SCH ×4 (00:11→18:08)
--- NOTE | 2018-09-09 00:15 | NUR ---
notes: pt is awake, confused. no pain. not distress. blood sugar 154- cover per sliding scale. iv antibiotic given. needs attended. reposition. side rails up. bed alarm on. will monitor.
[2018-09-09] MEDS: INSULIN REGULAR, HUMAN 100 UNITS/ML, 10 ML VIAL (humuLIN R) SUBCUT PRN (00:17)
[2018-09-09 01:08] VITALS: BP_SYST 143
--- NOTE | 2018-09-09 04:00 | NUR ---
notes: pt is awake, confused. complain he has pain. not distress. bp is ok. reposition. restrain is check and reposition. needs attended. reposition. side rails up. bed alarm on. will monitor.
[2018-09-09] MEDS: D5W 1,000 ML IV SCH ×3 (04:16→21:23)
[2018-09-09] MEDS: MORPHINE 4 MG/ML INJ. SYRINGE IVP PRN ×3 (04:17→19:47)
--- NOTE | 2018-09-09 06:00 | NUR ---
notes: pt is sleeping. no sob and pain. reposition. wrist restrain release and check. pt is clean and dry. needs attended. call light in reach. bed alarm on. low bed position. will monitor.
[2018-09-09] MEDS: HYDROCORTISONE SOD SUCC 100 MG/2 ML VIAL IVP SCH ×2 (06:07→18:08)
[2018-09-09 07:17] LABS: BASOPHILS % (AUTO) 0.1 % (0.0-2.0); EOSINOPHILS # (AUTO) 0.1 K/uL (0.0-0.4); EOSINOPHILS % (AUTO) 0.3 % (0.0-4.0); HEMATOCRIT 28.6 % (36-54); HEMOGLOBIN 9.3 g/dL (14.0-18.0); LYMPHOCYTES # (AUTO) 1.1 K/uL (1.0-5.5); LYMPHOCYTES % (AUTO) 5.9 % (20.5-51.5); MEAN CORPUSCULAR HEMOGLOBIN 29 pg (27-31); MEAN CORPUSCULAR HGB CONC 33 % (32-36); MEAN CORPUSCULAR VOLUME 89 fL (79.0-98.0); MONOCYTES # (AUTO) 1.3 K/uL (0.0-1.0); MONOCYTES % (AUTO) 7.4 % (1.7-9.3); NEUTROPHILS # (AUTO) 15.7 K/uL (1.8-7.7); NEUTROPHILS % (AUTO) 86.3 % (40.0-70.0); PLATELET COUNT (AUTO) 170 K/uL (130-430); RED BLOOD CELL COUNT(AUTO) 3.23 MIL/uL (4.2-6.2); RED CELL DISTRIBUTION WIDTH 18.5 % (9.0-15.0); WHITE BLOOD COUNT (AUTO) 18.2 K/uL (4.8-10.8)
[2018-09-09 07:36] LABS: ALBUMIN 1.7 g/dL (3.4-4.8); CREATININE 2.17 mg/dL (0.55-1.30); POTASSIUM 3.2 mmol/L (3.5-5.1); TOTAL BILIRUBIN 0.4 mg/dL (0.0-1.0)
--- NOTE | 2018-09-09 07:38 | NUR ---
closing; pt is resting, wakes up during report. not distress. stable blood pressure. still sinus tachy at monitor. wrist restrain in place. bilateral nephrostomy connected to leg bag. clean and dry. needs attended the whole shift. right ij intact and ivf infusing well. bedside report given to am rn.
[2018-09-09 07:41] LABS: CALCIUM 12.8 mg/dL (8.4-11.0)
--- NOTE | 2018-09-09 08:00 | NUR ---
OPENING NOTE patient is resting in bed A&O x1, breathing is even and slightly labored on 2L nasal cannula, no acute distress or pain is noted at this time, educated patient on plan of care and call light system, IVF infusing as ordered, bilateral soft wrist restraints in place, will continue to monitor, safety precautions in place, call light within reach.
[2018-09-09 08:13] VITALS: BP_SYST 122
--- NOTE | 2018-09-09 08:15 | NUR ---
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
[2018-09-09] MEDS: FAMOTIDINE PF 20 MG/2 ML VIAL IVP SCH ×2 (08:44→21:09)
--- NOTE | 2018-09-09 10:15 | NUR ---
NOTES patient changed for episode of stool and urine incontinence, patient tolerated well with no acute distress, patient denies any acute distress or pain, breathing is even and unlabored on 2L nasal cannula, will continue to monitor, safety precautions in place, call light within reach.
--- NOTE | 2018-09-09 11:47 | NUR ---
PATIENT REFUSED ACCUCHECK PATIENT STATED HE DOES NOT WANT TO BE POKED ANYMORE AND DOES NOT WANT HIS BLOOD SUGAR TO BE CHECKED, EDUCATED PATIENT ON IMPORTANCE OF CHECKING HIS BLOOD SUGAR, PATIENT VERBALIZED UNDERSTANDING AND STILL REFUSED. Addendum: 09/09/18 at 1418 by Nancy Weir RN PATIENT HAS POOR APPETITE AND DOES NOT WANT TO EAT LUNCH, D5W RUNNING 100ML/HR
[2018-09-09 12:25] VITALS: BP_SYST 125
--- NOTE | 2018-09-09 14:18 | NUR ---
NOTES patient is resting in bed awake talking to family, no acute distress or pain noted, patient has dyspnea on exertion, breathing is tachypneic, will continue to monitor, IVF infusing as ordered, patient turned and repositioned for comfort, will continue to monitor, safety precautions in place, call light within reach.
--- NOTE | 2018-09-09 16:50 | NUR ---
NOTES patient is resting in bed, Dr. jean talking with family at bedside, no acute distress or pain is noted, heart rate is elevated, will continue to monitor, safety precautions in place, IVF infusing as ordered, soft wrist restraints in place, safety precautions in place, call light within reach.
--- NOTE | 2018-09-09 17:05 | NUR ---
BLOOD SUGAR IS 140 AT THIS TIME, NO INSULIN NEEDED PER SLIDING SCALE.
[2018-09-09 17:07] VITALS: BP_SYST 119
--- NOTE | 2018-09-09 18:35 | NUR ---
CLOSING NOTE patient is resting in bed with eyes closed, breathing is even and unlabored on 2L nasal cannula, IVF infusing as ordered, no acute distress or pain noted, all needs were met throughout shift, will endorse report to oncoming nurse, bilateral wrist restraints in place, safety precautions in place, call light within reach.
--- NOTE | 2018-09-09 19:25 | NUR ---
initial notes: pt is resting in bed. wakes up and moan. ask if he is in pain. pt answer yes. on o2 2l via nc. no distress. vital sing are with in normal limits. pt has ivf infusing to right IJ- intact and patent, dressing to that iv site is dry and intact. pt has bilateral wrist restrain, check for circulation and injury, reposition pt. pt has bilateral nephrostomy tube- right is draining clear yellow urine and left side is not draining. dressing to that bilateral nephrostomy is dry and intact. pt has foam dressing to coccyx area- dressing is dry and intact. bilateral scd. on BROOKS mattress. reposition. needs attended. call light in reach. low bed position. bed alarm on. side rails up x 3. will continue to monitor.
[2018-09-09 19:38] VITALS: BP_SYST 136
--- NOTE | 2018-09-09 22:00 | NUR ---
notes: pt is resting, check pt chux and its wet with urine. clean pt, reposition. check restrain. needs attended. call light in reach. side rails up. low bed position. will monitor.
--- NOTE | 2018-09-09 23:42 | NUR ---
dr. jean is in the unit. told him about pt heart rate is 105-115. stated don't worry about it, he is dnr. no order made.
[2018-09-09 23:59] VITALS: BP_SYST 143
[2018-09-10] MEDS: INSULIN REGULAR, HUMAN 100 UNITS/ML, 10 ML VIAL (humuLIN R) SUBCUT PRN (00:04)
--- NOTE | 2018-09-10 00:25 | NUR ---
notes: pt is resting. pt is cough and refused to be suction to his mouth, encourage pt to cough harder to bring out secretion. pt don't want to cooperate. blood sugar is 168, cover per sliding scale. iv antibiotic given. reposition and check restrain. hob above 45 degrees. needs attended. side rails up. low bed position. will monitor.
--- NOTE | 2018-09-10 00:46 | NUR ---
mouth care done, pt tolerate well.
[2018-09-10] MEDS: MORPHINE 4 MG/ML INJ. SYRINGE IVP PRN (03:05)
--- NOTE | 2018-09-10 03:16 | NUR ---
pt is moaning after cough and suction. ask if he's on pain. pt say yes. blood pressure stable, still tachycardia on monitor. prn pain medication given. needs attended. authorization specialist ails up. bed alarm on. call light with in reach. will monitor.
--- NOTE | 2018-09-10 04:03 | NUR ---
sleeping, comfortable. no distress. no pain. no sob. reposition. release and check restrain. needs attended. side rails up. will monitor.
[2018-09-10] MEDS: PIPERACILLIN/TAZO 2.25G/DEX-IS 50 ML IV SCH ×5 (05:48→23:17)
--- NOTE | 2018-09-10 06:03 | NUR ---
notes: sleeping, comfortable. no distress. no pain. no sob. blood sugar- 100, no coverage. iv antibiotic given. clean pt. reposition. release and check restrain. needs attended. side rails up. will monitor.
[2018-09-10] MEDS: HYDROCORTISONE SOD SUCC 100 MG/2 ML VIAL IVP SCH ×2 (06:15→18:12)
--- NOTE | 2018-09-10 07:05 | NUR ---
closing: pt is resting,not distress. no pain stable. still sinus tachy at 105 in monitor. wrist restrain in place. bilateral nephrostomy connected to leg bag. clean and dry. needs attended the whole shift. ivf connect to right ij- infusing well. bedside report given to am rn.
[2018-09-10 07:57] VITALS: BP_SYST 141
--- NOTE | 2018-09-10 07:59 | NUR ---
AM rounds: Patient is asleep. On o2 2l/min via nasal cannula with 96% saturation. IV fluid of D5W 100cc/hr infusing to right IntraJugular central line triple lumen, patent, dressing to the iv site is dry and intact. Patient has bilateral nephrostomy tube, right is draining clear yellow urine and left side is not draining. Dressing to bilateral nephrostomy is dry and intact. Bilateral scd for DVT prophylaxis. On Low AirLoss Mattress Call light in reach. Bed on Low position. Bed alarm on. Side rails up x 3. BIlateral wrist restraints to prevent pulling out of tubings.
[2018-09-10] MEDS: FAMOTIDINE PF 20 MG/2 ML VIAL IVP SCH ×2 (08:08→21:22)
[2018-09-10] MEDS: D5W 1,000 ML IV SCH ×2 (08:10→23:16)
[2018-09-10 11:30] VITALS: BP_SYST 135
--- NOTE | 2018-09-10 11:40 | NUR ---
Change in assessment: Patient was seen tachypneic 36/min, using accessory muscles ,low saturation of 88% on 2 li/min vi nasal cannula. RT suctioned large amount of thick yellow secretion thru the left nares. Patient tolerated procedure well, no bleeding/trauma noted. Switched to ventimask at 35% oxygen, saturation is now 94%. Head of the bed is elevated.
--- NOTE | 2018-09-10 11:45 | NUR ---
RT NOTES Sterile NTS well tolerated, sxn large amount of thick yellow secretions. O2 to 35% ventimask 92-93%saturation.
[2018-09-10 14:54] VITALS: BP_SYST 133
--- NOTE | 2018-09-10 15:30 | NUR ---
MD rounds: Seen by Dr. jean, made aware patient's change in condition this morning. Per MD , patient's family will decide in am about hospice.
[2018-09-10 17:14] VITALS: BP_SYST 129
--- NOTE | 2018-09-10 18:46 | NUR ---
End of shift: Needs attended. No change in assessment.
--- NOTE | 2018-09-10 19:15 | NUR ---
OPENING NOTES RECEIVED PATIENT IN BED RESTING AROUSABLE TO NAME. PATIENT ON VENTURI MASK 02 SAT 95%. IVF INFUSING ORDERED VIA TLC CENTRAL ON RT IJ. BILATERAL WRIST RESTRAINTS IN PLACED FOR REMOVING 02 TUBING. BED IN LOWEST LOCKED POSITION WITH ALARM ON. CALL LIGHT WITH IN REACH.
--- NOTE | 2018-09-10 20:00 | NUR ---
02 RT SWITCHED BACK 02 TO 2L NC. PATIENT KEEPS REMOVING VENTURI MASK EVEN WITH THE RESTRAINTS IN PLACED. 02 SAT 96-98%
[2018-09-10 21:18] VITALS: BP_SYST 126
--- NOTE | 2018-09-10 21:22 | NUR ---
MED PASS PATIENT DUE MEDICATION GIVEN. VITAL SIGNS STABLE.
--- NOTE | 2018-09-10 23:24 | NUR ---
BLOOD SUGAR PATIENT DUE ANTIBIOTIC INFUSED. ROUTINE FINGER STICK SUGAR 147. NO COVERAGE NEEDED.
[2018-09-11 01:23] VITALS: BP_SYST 137
--- NOTE | 2018-09-11 03:20 | NUR ---
PT SATING 88 ON 4L 02. NASAL SXN THROUGH BOTH NARES. LG, COPIOUS AMT OF THICK, YELLOW SECRETIONS. PT SATING 95% Addendum: 09/11/18 at 0332 by Sravani Rai RT Amended: Links added.
--- NOTE | 2018-09-11 03:27 | NUR ---
SUCTION ASSISTED RT WITH NASO TRACHEAL SUCTIONING. LARGE AMOUNT OF YELLOW THICK SECRETIONS REMOVED. 02 2L NC TOLERATED. 02 SAT 95%.
--- NOTE | 2018-09-11 04:47 | NUR ---
INCONTINENCE INCONTINENCE CARE DONE. CHUX CHANGED. NO BM.
[2018-09-11] MEDS: PIPERACILLIN/TAZO 2.25G/DEX-IS 50 ML IV SCH (05:07)
[2018-09-11] MEDS: HYDROCORTISONE SOD SUCC 100 MG/2 ML VIAL IVP SCH (05:51)
--- NOTE | 2018-09-11 06:36 | NUR ---
CLOSING NOTES PATIENT RESTING IN BED. IVF INFUSING ORDERED. RT IJ CENTRAL LINE DRESSING CHANGED. 02 SAT 93-95%. PATIENT NEEDS ATTENDED. BED IN LOWEST LOCKED POSITION WITH ALARM ON. CALL LIGHT WITH IN REACH.
[2018-09-11 06:54] LABS: BASOPHILS % (AUTO) 0.1 % (0.0-2.0); EOSINOPHILS # (AUTO) 0.1 K/uL (0.0-0.4); EOSINOPHILS % (AUTO) 0.3 % (0.0-4.0); HEMATOCRIT 25.9 % (36-54); HEMOGLOBIN 8.6 g/dL (14.0-18.0); LYMPHOCYTES % (AUTO) 5.8 % (20.5-51.5); MEAN CORPUSCULAR HEMOGLOBIN 29 pg (27-31); MEAN CORPUSCULAR HGB CONC 33 % (32-36); MEAN CORPUSCULAR VOLUME 88 fL (79.0-98.0); MONOCYTES # (AUTO) 1.2 K/uL (0.0-1.0); MONOCYTES % (AUTO) 7.1 % (1.7-9.3); NEUTROPHILS # (AUTO) 14.5 K/uL (1.8-7.7); NEUTROPHILS % (AUTO) 86.7 % (40.0-70.0); PLATELET COUNT (AUTO) 152 K/uL (130-430); RED BLOOD CELL COUNT(AUTO) 2.94 MIL/uL (4.2-6.2); RED CELL DISTRIBUTION WIDTH 18.6 % (9.0-15.0); WHITE BLOOD COUNT (AUTO) 16.7 K/uL (4.8-10.8)
[2018-09-11 07:07] LABS: ALBUMIN 1.6 g/dL (3.4-4.8); CREATININE 2.15 mg/dL (0.55-1.30); POTASSIUM 3.3 mmol/L (3.5-5.1); TOTAL BILIRUBIN 0.6 mg/dL (0.0-1.0)
[2018-09-11 07:16] LABS: CALCIUM 13.1 mg/dL (8.4-11.0)
--- NOTE | 2018-09-11 07:58 | NUR ---
Opening Note Report received from Harriet COFFEY shift nurse. patient is refusing to have breakfast at the moment. Patient does not report feeling dizzy. IV is on the RIJ running D5W @70. Bilateral nephrostomy drains are in place. No output from drains. O2 is @2l, current O2 sat is 94%. Bed is locked and in the lowest position. Will continue to closely monitor.
[2018-09-11 08:00] VITALS: BP_SYST 130
[2018-09-11] MEDS: FAMOTIDINE PF 20 MG/2 ML VIAL IVP SCH ×2 (08:49→21:55)
[2018-09-11] MEDS ORDERED: POTASSIUM CHLORIDE 40 MEQ in D5W 250 ML IV ONE (10:00)
--- NOTE | 2018-09-11 10:11 | NUR ---
Rounds Patient is sleeping in bed. No signs of acute distress noted at the moment.
[2018-09-11] MEDS: INSULIN REGULAR, HUMAN 100 UNITS/ML, 10 ML VIAL (humuLIN R) SUBCUT PRN (11:20)
--- NOTE | 2018-09-11 12:22 | NUR ---
Rounds Patient is currently ST at 122. Deep sx performed. Sputum cx was sent to lab
[2018-09-11] MEDS: FLUCONAZOLE 100 mg/ NS 50 ML IV SCH (12:38)
[2018-09-11 13:03] VITALS: BP_SYST 127
[2018-09-11] MEDS: MEROPENEM 500 MG IVPB PREMIX 50 ML IV SCH ×2 (14:20→21:55)
[2018-09-11] MEDS: D5W 1,000 ML IV SCH (14:29)
--- NOTE | 2018-09-11 14:31 | NUR ---
Rounds Patient is sleeping has his eyes closed. RIJ is in place. No output from nephrostomy drains. MD's are aware.
--- NOTE | 2018-09-11 16:30 | NUR ---
MD Rounds Dr. Rodriguez and Dr. Coulter both examined the patient at the bedside. Made Dr. Coulter aware that the patient's daughter has agreed to hospice.
--- NOTE | 2018-09-11 16:41 | NUR ---
SS NOTE: [facility] phoned XU[facility] Linda @ [phone] to discuss possibly referring pt to hospice per Dr. Coulter's recommendation. Per Alexei, she understands that it is time for her father to do hospice. Will send referral when order for hospice eval is ordered. SS will follow up tomorrow.
[2018-09-11 16:51] VITALS: BP_SYST 125
--- NOTE | 2018-09-11 18:40 | NUR ---
Closing Note Patient has required deep suctioning throughout the shift. Sputum sample needs to be recollected. RIJ is in place running D5W@70. Chau nephrostomy tubes are in place without any drainage. Current O2 sat is 95% on 2l NC. Current HR is 118. Will endorse care to the oncoming nurse.
--- NOTE | 2018-09-11 19:30 | NUR ---
Opening notes Pt asleep, no s/s distress noted. VSS, O2 sat 96% on 2L NC, ST on the monitor. IVF infusing at ordered rate R. IJ dressing C/D/I, good blood return. No output noted on nephrostomy tubes. Chau SCDs on. Pt on low air loss mattress. Call light within reach. To monitor.
[2018-09-11 22:30] VITALS: BP_SYST 112
--- NOTE | 2018-09-11 23:40 | NUR ---
Blood sugar Pt asleep, opens eyes, non verbal. Blood sugar checked 144, no insulin per protocol. Safety measures in place. To monitor.
[2018-09-12] VITALS (7 sets, daily range): BP systolic 124–132
--- NOTE | 2018-09-12 04:00 | NUR ---
BM Pt incontinent of urine and bm. Pericare/skin care provided. Sacral wound dressing c/d/i. Pt on low air loss mattress. Repositioned. Chau SCDs in place. To monitor.
[2018-09-12 05:42] LABS: BASOPHILS % (AUTO) 0.1 % (0.0-2.0); EOSINOPHILS # (AUTO) 0.1 K/uL (0.0-0.4); EOSINOPHILS % (AUTO) 0.3 % (0.0-4.0); HEMATOCRIT 27.2 % (36-54); HEMOGLOBIN 8.8 g/dL (14.0-18.0); LYMPHOCYTES # (AUTO) 0.7 K/uL (1.0-5.5); LYMPHOCYTES % (AUTO) 4.5 % (20.5-51.5); MEAN CORPUSCULAR HEMOGLOBIN 29 pg (27-31); MEAN CORPUSCULAR HGB CONC 32 % (32-36); MEAN CORPUSCULAR VOLUME 89 fL (79.0-98.0); MONOCYTES # (AUTO) 0.8 K/uL (0.0-1.0); NEUTROPHILS # (AUTO) 14.5 K/uL (1.8-7.7); NEUTROPHILS % (AUTO) 90.1 % (40.0-70.0); PLATELET COUNT (AUTO) 169 K/uL (130-430); RED BLOOD CELL COUNT(AUTO) 3.07 MIL/uL (4.2-6.2); WHITE BLOOD COUNT (AUTO) 16.1 K/uL (4.8-10.8)
[2018-09-12 05:49] LABS: ALBUMIN 1.7 g/dL (3.4-4.8); CREATININE 2.03 mg/dL (0.55-1.30); POTASSIUM 3.8 mmol/L (3.5-5.1); TOTAL BILIRUBIN 0.4 mg/dL (0.0-1.0)
[2018-09-12 06:16] LABS: CALCIUM 13.1 mg/dL (8.4-11.0)
--- NOTE | 2018-09-12 06:50 | NUR ---
Closing notes/Blood sugar Pt asleep. Blood sugar checked 150, no ss insulin indicated at this time. Chau nephrostomy drains in place, no output noted. IVF/antibiotic running at ordered rate on R. IJ 3 lumens all ports capped with good blood return. Pt on low air loss mattress, chau SCDs on. RT at bedside for deep suctioning. Endorsed to AM nurse.
[2018-09-12] MEDS: MEROPENEM 500 MG IVPB PREMIX 50 ML IV SCH ×2 (06:51→14:11)
[2018-09-12] MEDS: D5W 1,000 ML IV SCH (06:52)
--- NOTE | 2018-09-12 06:55 | NUR ---
RT NOTES- NTS NASAL TRACHEAL SUCTIONING PERFORMED WITH RT ИРИНА ASSISTANCE. LARGE AMOUNT OF YELLOW THICK SECRETIONS REMOVED. PT WAS ON 9L/35%FIO2 VIA VENTI MASK WHILE SX. PLACED PT BACK ON 3L N/C POST TX. HR119/ SPO2 93%.
--- NOTE | 2018-09-12 07:30 | NUR ---
Opening Note: Patient in bed resting. Patient shows no signs of pain or discomfort. Breathing is even and unlabored on 2L nasal cannula, no distress noted. IJ line dressing clean, dry and intact running IVF per MD orders. SCD's in place. Bilateral nephrostomy drains patent and intact, no drainage noted. Safety precautions in place; bed in lowest position, wheels locked, side rails x3, bed alarm activated and call light within reach. No needs at this time. Will continue to monitor.
[2018-09-12] MEDS: FAMOTIDINE PF 20 MG/2 ML VIAL IVP SCH (08:50)
[2018-09-12] MEDS ORDERED: HYDROCORTISONE SOD SUCC 100 MG/2 ML VIAL IVP SCH (09:00)
--- NOTE | 2018-09-12 10:15 | NUR ---
Rounds: Patient in bed resting. Patient replied "Okay" when asked how he was doing. No distress noted. Will continue to monitor.
[2018-09-12] MEDS: FLUCONAZOLE 100 mg/ NS 50 ML IV SCH (11:55)
--- NOTE | 2018-09-12 11:55 | NUR ---
Hospice Evaluation: [facility] met with daughter Elizabet.
--- NOTE | 2018-09-12 12:00 | NUR ---
Rounds/Wound Care: Patient in bed resting, no signs of pain or discomfort. Breathing is even and unlabored on 2L nasal cannula, no distress noted. Morning medications tolerated well. IVPB Diflucan running per MD orders. Patient repositioned and changed. Blood sugar 156, covered with 2 units regular insulin per sliding scale, see eMAR. Wound care done to sacral area per wound care orders, see MST shift assessment. Patient tolerated well. Safety precautions in place and call light within reach. NO needs at this time. Will continue to monitor.
[2018-09-12] MEDS: INSULIN REGULAR, HUMAN 100 UNITS/ML, 10 ML VIAL (humuLIN R) SUBCUT PRN (12:11)
--- NOTE | 2018-09-12 12:45 | NUR ---
Discharge Planning: Padma ([phone]) from [facility] met with Flakita (ALECIA) to discuss hospice. ALEICA is agreeable to use [facility] with a plan to go back to [facility] or any SNF facilities when discharged.
--- NOTE | 2018-09-12 14:04 | NUR ---
Rounds: Patient in bed resting. No distress noted. Will continue to monitor.
--- NOTE | 2018-09-12 14:33 | NUR ---
Called Family: Called daughter Alexei Gentile, made aware of patients transfer back to [facility] under the care of [facility].
--- NOTE | 2018-09-12 14:37 | NUR ---
Called Report: Called Aaron Cook and gave report to Soraida, all questions answered and call back number given.
--- NOTE | 2018-09-12 16:11 | NUR ---
Rounds: Patient in bed resting. Repositioned. No distress noted. No signs of pain or discomfort. IVF infusing per MD orders. Safety precautions in place and call light within reach. No needs at this time. Will continue to monitor.
--- NOTE | 2018-09-12 17:30 | NUR ---
D/C Patient Patient given medication reconciliation form and D/C instructions. Exit Care provided. MD discussed with patient the results and treatment provided. Patient in stable condition, ID band removed. White wrist band with name and placed. IJ catheter secures, intact and dressing applied, no active bleeding. Patient educated on pain management. All belongings sent with patient. Patient transferred to [facility].
== END 2018-09-12 17:30 | DRG 720 ==
LOC: SED 17:18 → SIC 19:50 → STU 09-07 15:00
PROVIDERS: ADMIT Internal Medicine; ATTEND Internal Medicine
PROC: 30233N1 Transfusion of Nonautologous Red Blood Cells into Peripheral Vein, Percutaneous Approach (ICD-10-PCS; principal; 2018-09-04)
PROC: 02HV33Z Insertion of Infusion Device into Superior Vena Cava, Percutaneous Approach (ICD-10-PCS; 2018-09-04)
PROC: B548ZZA Ultrasonography of Superior Vena Cava, Guidance (ICD-10-PCS; 2018-09-04)
PROC: 5A09357 Assistance with Respiratory Ventilation, Less than 24 Consecutive Hours, Continuous Positive Airway Pressure (ICD-10-PCS; 2018-09-04)
PROC: 5A09357 Assistance with Respiratory Ventilation, Less than 24 Consecutive Hours, Continuous Positive Airway Pressure (ICD-10-PCS; 2018-09-05)
PROC: 5A09357 Assistance with Respiratory Ventilation, Less than 24 Consecutive Hours, Continuous Positive Airway Pressure (ICD-10-PCS; 2018-09-06)
DX: A41.2 Sepsis due to unspecified staphylococcus (principal); J69.0 Pneumonitis due to inhalation of food and vomit; J96.01 Acute respiratory failure with hypoxia; R65.21 Severe sepsis with septic shock; E43 Unspecified severe protein-calorie malnutrition; G93.41 Metabolic encephalopathy; N17.9 Acute kidney failure, unspecified; C78.00 Secondary malignant neoplasm of unspecified lung; E83.52 Hypercalcemia; E87.0 Hyperosmolality and hypernatremia; D64.9 Anemia, unspecified; E11.22 Type 2 diabetes mellitus with diabetic chronic kidney disease; E87.5 Hyperkalemia; I12.9 Hypertensive chronic kidney disease with stage 1 through stage 4 chronic kidney disease, or unspecified chronic kidney disease; G89.29 Other chronic pain; N18.9 Chronic kidney disease, unspecified; Z51.5 Encounter for palliative care; C79.51 Secondary malignant neoplasm of bone; C78.7 Secondary malignant neoplasm of liver and intrahepatic bile duct; Z66 Do not resuscitate; Z85.51 Personal history of malignant neoplasm of bladder; Z87.311 Personal history of (healed) other pathological fracture; Z87.891 Personal history of nicotine dependence; Z93.6 Other artificial openings of urinary tract status; Z79.899 Other long term (current) drug therapy; Z87.81 Personal history of (healed) traumatic fracture
CPT/HCPCS: 36415; 36600; 71045; 80048; 80053; 80202-TC; 82803-TC; 82962; 83605; 83880; 84484; 85025; 85610-TC; 85730-TC; 86886; 86900; 86901; 86920; 87040-TC; 87081; 87205-TC; 93005; 94640; 94660; 94760; 96361; 96372; 96374; 96375; 99291; A6261; G0378; J0878; J1450; J1720; J1815; J1956; J2060; J2185; J2270; J2543; J3370; J3480; J3490; J7030; J7050; J7060; J7613; P9021